=== PATIENT | female | born 1980 | race Caucasian/White ===

== ENCOUNTER → 2017-11-20 09:27 | Outpatient (CLI) | payer BC, SELFPAY ==
[2017-11-20 22:19] LABS: Chlamydia Trachomatis by PCR Negative (Negative); Neisserai gonorrhoeae by PCR Negative (Negative); Probe Check PASS; Sample Adequacy Control PASS; Specimen Processing Control PASS
== END ==
PROVIDERS: Visit Provider Obstetrics & Gynecology
DX: Z30.430 Encounter for insertion of intrauterine contraceptive device (principal); Z11.3 Encounter for screening for infections with a predominantly sexual mode of transmission
CPT/HCPCS: 87491; 87591

== ENCOUNTER 2019-05-26 05:25 | Day surgery (SDC) | payer SELFPAY ==
[2019-05-15 11:45] LABS: Hemoglobin 13.2 g/dL (12.0-15.0); Mean Corpuscular Hgb 30.8 pg (27.0-32.0); Mean Corpuscular Volume 93.5 fL (81-99); Mean Platelet Vol. 10.4 fl (6.2-12.0); Platelet Count 267 K/mm3 (150-450); RBC Distribution Width CV 12.8 % (11.6-14.6); RBC Distribution Width SD 43.8 fl (35.1-43.9); Red Blood Count 4.28 M/mm3 (4.2-5.4); White Blood Count 5.4 K/mm3 (4.4-11.0)
[2019-05-15 11:57] LABS: Prothrombin Time (Protime)PT. 13.2 SECONDS (11.7-14.9)
[2019-05-15 11:58] LABS: Partial Thromboplast Time 26.7 Seconds (24.1-36.2)
[2019-05-15 12:03] LABS: Internal QC Validated? YES +Cl - CLEAR BKGD; Pregnancy, Serum, hCG Quali. NEGATIVE Negative
[2019-05-15 12:06] LABS: Creatinine, Serum 0.69 mg/dL (0.55-1.02); EST Glomerular Filtration Rate 99 mL/min (>60); Est Glom Filt Rate - Afr Amer 120 mL/min (>60)
--- NOTE | 2019-05-25 19:47 | PCM.HP.BLA ---
History and Physical Date of Admission: 05/26/19 Surgical History and Physical Lorena Meade, a 39 year old female 0 0 0 1 3, presents for RAVH/BS on May 26, 2019 at 8:30. -- Ireegular Heavy Menses; Blood Loss Anemia; Submucous Fibroids; Enlarged Uterus -- Passing of a lot of clots. 39 y.o. G 1 P 3 previous smoker (quit 8 months ago) with LMP of 03-06-19 and continues through today. Seen PCP and recommended to see STUDENT DEVELOPMENT SPECIALIST as she may want to consider an Ablation, as she is anemic and placed on Iron supplement daily. History of Mirena IUD placement in 10/2017. Irregular Menses which began 2-3 months. Lorena claims it started suddenly and has been present 2-3 months. It occurs intermittantly. It is located in the vagina.; It is located in the lower abdomen. Lorena characterizes it to be non-radiating. Lorena characterizes the quality passing clots. Severity is moderate and not improving; Additional comments are: Has Mirena IUD and considering Ablation. U/S shows multiple uterine fibroids and one submucous. Uterus 13.5 cm size. MEDICATIONS HISTORY: Current medications prescribed by our practice are: 1. Mirena 20 mcg/24 hr (5 years) intrauterine device, Placed 11/20/17. Due for removal 11/20/22 ALLERGIES: No Known Allergies Infections - Chicken Pox Illnesses - None Accidents - None Hospitalizations - Surgery and Childbirth Review of Systems: GENERAL - Denies fever, or chills SKIN - Denies skin changes EYES - Denies visual changes EARS - Denies difficulty hearing NOSE - Denies nasal congestion or bleeding MOUTH - Denies sore throat or difficulty swallowing NECK - Denies pain or swelling RESPIRATORY - Denies shortness of breath or wheezing CARDIOVASCULAR - Denies palpitations or chest pain GASTROINTESTINAL - Denies nausea, vomiting, diarrhea, constipation GENITOURINARY - Denies dysuria, frequency of urination, incontinence of urine MUSCULOSKELETAL - Denies joint or muscle pain NEUROLOGICAL - Denies localized numbness or weakness PSYCHIATRIC - Denies depression or anxiety ENDOCRINE - Denies heat or cold intolerance, weight loss or gain HEMATO-IMMUNOLOGIC - Denies excesive bleeding with cuts SOCIAL HISTORY: Alcohol Use - drinks occasionally Smoking - used to smoke but quit Diet - Low Carb Lifestyle - moderate stress lifestyle and Exercise - regular Seat Belt Use - always Employer - [employer] in [place] Job Description - [employer] Illicit Drug Use - denies use of street drugs Sexual Activity - Residence - Lives w/ Spouse-Sig Other Name - Aj Meade Spouse-Sig Other Occupation - Garage Door Tech @ [employer] in [place] Spouse-Sig Other Phone No - [phone] Children Name(s) - 3 living (Triplets) 2 girls and a boy -- age 19 10/2017 Control - [facility] FAMILY HISTORY: MENSTRUAL HISTORY: LMP Known?- DefiniteAmount/Duration - 4-5 DAYS, Regularity - Irregular, Frequency - variable days, LMP - 04/29/19, Age Onset Menarche - 9 PAST PREGNANCIES: Total Pregnancies - 1; Full Term Pregnancies - 0; Premature - 0; Abortions, Induced - 0; Abortions, Spontaneous - 0; Ectopics - 0; Multiple Births - 1; Living Children - 3 SURGICAL HISTORY: 1. C/S 1998 ; Triplets PHYSICAL EXAM BP- 142/88 Sitting, Right arm, regular cuff Weight- 141.91456 lbs Height- 65.75 inch BMI:22.98 CONSTITUTIONAL - NAD, well nourished, and well developed SKIN - No rash, lesions, or ulcers HEENT - Normocephalic, PERRLA, EOMI LYMPH NODES - Palpation of lymph nodes in neck and groins within normal limits LUNGS - CTA x2 without wheezes, crackles or rales CARDIAC - Regular rate and rhythm without rubs, murmurs, or gallops ABDOMEN - Without hepatosplenomegaly, distention, masses, rebound, or guarding; normal bowel sounds; no hernias EXTREMITIES - No edema or calf tenderness NEUROLOGICAL - Cranial nerves II-XII grossly intact PSYCHIATRIC - A and O to time, place, person, mood and affect DETAILED PELVIC EXAM External Genital Vagina - non-tender without lesions Urethra/Urethral Meatus - non-tender Bladder - non-tender Vagina - vaginal larios are pink and moist without loss of rugae and no evidence of atropy Cervix - without cervical motion tenderness and has normal size and features without evident lesions Uterus - 5-6 cm in size, mobile and nontender Adnexa - clear without masses or tenderness ASSESSMENT/PLAN: 1. Blood Loss Anemia and Submucous Leiomyoma Of Uterus U/S shows multiple fibroids (one likely submucous) and 13.5 cm sized. Prior . Discussed options including expectant management, continuing iron, removing IUD and expectant management, versus proceeding with RAVH/BS. Desires the surgery. Discussed RBAs of surgery and all questions answered.
[2019-05-26] VITALS (14 sets, daily range): BP systolic 108–138; BP diastolic 59–93; PULSE 57–98; RESP 12–16; TEMP 36.6–37.6; O2SAT 94–100; BMI 22.5
--- NOTE | 2019-05-26 | HYST_PTH ---
PATIENT: ROSI BRIGGS [place] [facility] [place][id number] AGE/SX: 39/F ROOM: RE05/26/[address]: Dr. Travis Hernandez MD : 1980 BED: DIS: 05/27/2019 SPEC #: [id number] RECD: 05/26/19 13:36 STATUS: LOUANN SONG #: [id number] LUZ ELENA: 05/26/19 00:[address]: Travis Hernandez DEPT: SURGICAL PATHOLOGY RECD BY: Raghu Eli ENTERED: 05/26/19 13:36 SP TYPE: HYSTERECT OTHR DR: Dr. Abraham Velazquez MD Tissues: Uterus, NOS Procedures: Surgery Specimen Level V HEADER OPERATION: Robotic-assisted vaginal hysterectomy, bilateral salpingectomy PRE-OP DIAGNOSIS: Menorrhagia, submucous fibroids, enlarged uterus TISSUE SUBMITTED: Uterus, cervix, bilateral fallopian tubes MICROSCOPIC DIAGNOSIS Uterus, hysterectomy: Cervix - nabothian cysts and mild chronic inflammation. Endometrium - secretory endometrium. Myometrium - leiomyomas and cellular leiomyoma with degenerative change. Right and left fallopian tubes - benign paratubal cysts. AM:ap 05/27/19 COMMENT Case has been reviewed in consultation with Dr. Ware who concurs with the above diagnosis. IDC:SJ MICROSCOPIC DESCRIPTION Slides are reviewed. GROSS DESCRIPTION Received in fixative is one container labeled with the patient's name and designated uterus, cervix and bilateral fallopian tubes. The specimen consists of a hysterectomy specimen consisting of a uterus in multiple pieces, detached cervix and bilateral fallopian tubes. One fallopian tube attached to the largest piece, second tube is attached to one of the smaller pieces. The uterus with cervix weighs in aggregate 964 gm. The detached cervix measures 4 x 3 x 2.5 cm. The ectocervical mucosa is unremarkable. The external os is circular in contour. The endocervical canal measures 3.5 cm in length and the endocervical mucosa is unremarkable. The uterus in multiple pieces measures in aggregate 21 x 20 x 7 cm. The largest piece of uterus measures 11 x 9 x 6 cm. The endometrial cavity could not be identified due to the fragmented nature of the specimen. Sections of the uterus pieces reveal multiple nodules. The largest nodule measures 8 cm in greatest dimension. A focal area shows the serosal surface is valenzuela, glistening. Sections of these masses reveal valenzuela whorled cut surfaces without areas of hemorrhage, necrosis or cystic degeneration. The uninvolved uterine wall measures up to 4 cm in thickness. One of the fallopian tubes measure 6 cm in length and 0.5 cm in diameter. The fimbrial end is identified. Two paratubal cysts are noted measuring 0.8 and 1 cm in greatest dimension. Sections reveal unremarkable cut surfaces. The second fallopian tube is similar in appearance to the first one and measures 10 cm in length and 0.5 cm in diameter. The fimbrial end is identified. Sections reveal unremarkable cut surfaces. Manager Ship sections are submitted in 12 cassettes as follows: 1 & 2 - cervix, 3-6 - uterine wall, 7-10 - nodular masses (7 - largest nodular mass, 8 - second largest nodular mass, 9 & 10 - smaller nodular masses), 11 - one fallopian tube with paratubal cysts, 12 - second fallopian tube. / DAVID:ap 05/26/19 TC:1 CPT: 73187
[2019-05-26 05:56] LABS: Internal QC Validated? YES +Cl - CLEAR BKGD; Pregnancy, Urine Negative Negative
[2019-05-26] MEDS: Lactated Ringers 1,000 ML 100 ML IV ×2 (06:27→06:31)
--- NOTE | 2019-05-26 07:37 | PCM.OPRPT ---
Report of Operation Date of Procedure: 05/26/19 Pre-Operative Diagnosis: Menorrhagia, Submucous Fibroids, Enlarged Uterus Post-Operative Diagnosis: Menorrhagia, Submucous Fibroids, Enlarged Uterus Surgery/Procedure Performed:: Robotic Assisted Vaginal Hysterectomy and Bilateral Salpingectomy Description of Surgical Findings:: 14 cm fibroid uterus with normal-appearing fallopian tubes and ovaries. yard cleaner: Garrett Diamond Type of Anesthesia:: General - Endotracheal Anesthesiologist: Allen Hightower Specimen's removed: Uterus and bilateral fallopian tubes Drains: Lopes to straight drain Estimated Blood Loss (mL): 100 cc Fluids Replaced: Crystalloid Description of Procedure: Surgeon: Travis Hernandez MD, FACOG Indication: This is a 39 year old patient who has been having problems with extremely heavy periods and submucous uterine fibroids. Multiple conservative measures have not been helpful. The patient has been counseled regarding the risks, benefits and alternatives of this procedure including the possibility of bleeding, infection, and injury to surrounding structures such as bowel bladder and all questions were answered. She understands that if BSO is needed that she will need to be on HRT for an indefinite period of time. Procedure: Pt taken to the operating room where, after induction of general anesthesia, the patient was prepped and draped in the usual sterile fashion and placed on a non-slip Huggy-u-vac device. Trendelenburg test was satisfactory. Bladder was drained of urine with a Lopes catheter which was left in place. Anterior cervix grasped and cervix was dilated to about 3-4 mm. Uterus sounded to 13 cms. 0-Vicryl suture was placed at the 3:00 and 9:00 position of the cervix. A small Advincula [employer] Well Service Operator Uterine Manipulator was then placed in the uterus and attention was turned to the laparoscopic portion of the procedure. Ropivocaine 0.5% was injected approximately 2-3 cm superior to the umbilicus and an 8 mm robotic camera port was introduced directly with intraperitoneal placement confirmed with CO2 insufflation. 8 mm robotic side ports were introduced under direct visualization approximately 10 cm lateral and 2 cm inferior to the umbilical port. A 5 mm left upper quadrant port was introduced and airseal insufflation with CO2 was started. The above findings were noted. Robot was docked without difficulty and attention turned to the robotic portion of the procedure. Approximately 24cc of Ropivicaine was used. Bilateral infundibulopelvic ligaments/mesosalpinx were ligated with 35 lara bipolar coagulation to the level of the round ligament. We were unable to open the posterior aspect of the cervix due to the large size of the uterus. Bladder flap was opened and divided to the level of the round ligaments using monopolar cautery. Progressive bites were then ligated on each side of the cervix with 35 lara bipolar cautery to the uterine arteries. The anterior vaginal mucosa was entered and cervix circumscribed with monopolar cautery. Uterus and attached tubes were removed through the vagina and pieces by taking the uterus out in pieces. It was necessary to undock the robot during this portion of the procedure and then it was re-docked. Vaginal cuff was closed robotically first with 0-Vicryl Emil stitches placed at each angle followed by closure of the mid-cuff with 0-Monocryl V-lock suture in two layers. Pelvis was copiously irrigated with saline and the right ureter was noted to peristalse. Surgicel powder was placed across the vaginal cuff to help with postoperative hemostasis. Robot was undocked and trocars were removed with as much gas as possible. Incisions were closed with 4-0 Monocryl subcuticular sutures and incisions covered with steri-strips. The patient tolerated the procedure well and was taken to the recovery room in satisfactory condition. Sponge, instruments and needle counts were all correct. There were no apparent complications of the surgery. Cefotan 2 gms IV was given prior to the procedure. Grafts/Implants Used: None - Complications None - Admit VTE Documentation VTE Present on Admission: Yes VTE Mechan Device Prophylaxis: SCD's VTE Pharm Prophylaxis ordered?: Yes
--- NOTE | 2019-05-26 07:40 | DCINST_ITS ---
Discharge Diet: No Restrictions Discharge Activity: Return to Normal Activity, May Not Drive - while taking narcotic pain medications., May Shower, May Take a Tub Bath May resume sexual activity in: 6-8 weeks Call your doctor if your incision/area has: Continuous Slow Oozing, Sudden Inc reased Bleeding, Increased Pain/ Swelling, Increased Redness, Foul Smelling Discharge Call your doctor if you observe: Fever of 101 or Higher, Inability to urinate, Inability to have a bowel movement, Using more than one pad per hour Allergies/Adverse Reactions: Allergies No Known Allergies Allergy (Verified 05/21/19 08:09) Medications to take at Discharge Iron Carbonyl [Feosol] 65 mg PO BID 05/21/19 Docusate Sodium [Colace] 100 mg PO BID PRN PRN #60 cap 05/26/19 Oxycodone [Oxyir] 5 mg PO Q6H PRN PRN 7 Days #20 tab 05/26/19 The following prescriptions were given: Docusate Sodium [Colace] 100 mg PO BID PRN PRN #60 cap PRN Reason: Constipation Prescription Printed Oxycodone [Oxyir] 5 mg PO Q6H PRN PRN 7 Days #20 tab PRN Reason: Pain Score 4-10/10 Prescription Printed Primary Care Physician: Abraham Velazquez MD [Primary Care Provider] - Test Results: Test results from this visit will be discussed in further detail at your follow- up appointment, if applicable. Please Follow Up With: Travis Hernandez MD When: 2 to 3 weeks
[2019-05-26] MEDS: Ropivacaine 0.5% 30 ML Vial (08:30)
[2019-05-26] MEDS: Dextrose 5%-Lactated Ringers 1,000 ML 150 ML IV ×2 (14:40→21:59)
[2019-05-26] MEDS: Ferrous Sulfate 325 MG Tablet PO (17:15)
[2019-05-26] MEDS: Ketorolac 30 MG/ML Syringe IV (17:15)
[2019-05-26] MEDS: Enoxaparin 30 MG/0.3 ML Syringe SC (17:16)
[2019-05-26] MEDS: oxyCODONE 5 MG Tablet PO (20:27)
[2019-05-27] MEDS: Ketorolac 30 MG/ML Syringe IV ×2 (00:08→06:11)
[2019-05-27] MEDS: 0.9% NaCl Peripheral Flush Adult/Peds IV ×2 (00:08→06:11)
[2019-05-27 00:15] VITALS: BP 118/73; PULSE 86; RESP 16; TEMP 36.8; O2SAT 97
[2019-05-27 05:44] LABS: Hematocrit 29.9 % (37-47); Hemoglobin 9.8 g/dL (12.0-15.0); Mean Corp Hgb Conc 32.8 g/dL (32-36); Mean Corpuscular Volume 94.6 fL (81-99); Mean Platelet Vol. 10.4 fl (6.2-12.0); Platelet Count 219 K/mm3 (150-450); RBC Distribution Width CV 12.9 % (11.6-14.6); RBC Distribution Width SD 44.7 fl (35.1-43.9); Red Blood Count 3.16 M/mm3 (4.2-5.4); White Blood Count 8.5 K/mm3 (4.4-11.0)
[2019-05-27 05:47] LABS: Creatinine, Serum 0.67 mg/dL (0.55-1.02); EST Glomerular Filtration Rate 103 mL/min (>60); Est Glom Filt Rate - Afr Amer 124 mL/min (>60); Estimated Creatinine Clearance 107.46 ml/min
[2019-05-27 06:15] VITALS: BP 126/60; PULSE 72; RESP 16; TEMP 36.8; O2SAT 97
--- NOTE | 2019-05-27 06:37 | PCM.PN.OB ---
Subjective: Patient without complaints. Tolerating diet well. Minimal vaginal bleeding. Lopes catheter is out. - Physical Exam Vital Signs Temp Pulse Resp BP Pulse Ox 98.3 F 72 16 126/60 H 97 05/27/19 06:15 05/27/19 06:15 05/27/19 06:15 05/27/19 06:15 05/27/19 06:15 Oxygen Delivery Method Room Air Weight: 143 lb 11.862 oz Body Mass Index (BMI) 22.5 Intake and Output for Last 24 Hours 05/25/19 05/26/19 05/27/19 23:59 23:59 23:59 Intake Total 3241.67 / 3841.67 1400 / 1400 Output Total 475 / 475 1100 / 1100 Balance 2766.67 / 3366.67 300 / 300 Laboratory Tests Past 24 Hrs 05/27/19 05/27/19 05:10 05:10 WBC 8.5 RBC 3.16 L Hgb 9.8 L Hct 29.9 L MCV 94.6 MCH 31.0 MCHC 32.8 RDW Std Deviation 44.7 H RDW Coeff of Rosamaria 12.9 Plt Count 219 MPV 10.4 Creatinine 0.67 Estim Creat Clear Calc 107.46 Est GFR (MDRD) Af Amer 124 Est GFR (MDRD) Non-Af 103 Wounds are clean, dry, intact. Good urine output. Hemoglobin and creatinine okay. Medical Necessity - Tobacco Use Smoking Status: Former smoker Assessment/Plan Doing well postoperative day #1 status post robotic assisted vaginal hysterectomy and bilateral salpingectomy. Will release to home with routine instructions.
[2019-05-27 07:38] VITALS: O2SAT 96
[2019-05-27 08:19] VITALS: BP 121/74; PULSE 65; RESP 16; TEMP 37.2; O2SAT 99
--- NOTE | 2019-05-27 09:40 | CASEMGMT ---
Social Work Note Pt is listed as self-pay. Per PFS pt has [facility]. Nay Pascual COMPRESSOR STATION OPERATOR, UTILIZATION SPECIALIST
[2019-05-27] MEDS: oxyCODONE 5 MG Tablet PO (10:11)
[2019-05-27] MEDS: Ferrous Sulfate 325 MG Tablet PO (10:12)
== END 2019-05-27 10:41 | disposition home or self-care (01) ==
LOC: SDC 05:25 → AC 05:26 → MS3 07:50
PROVIDERS: Anesthesiology; Family Provider Family Medicine; PCP Family Medicine; Referring Provider Obstetrics & Gynecology; Visit Provider Obstetrics & Gynecology
PROC: 0UT90ZZ Resection of Uterus, Open Approach (ICD-10-PCS; CPT 58554; principal; 2019-05-26 07:10)
DX: N92.0 Excessive and frequent menstruation with regular cycle (principal); D25.0 Submucous leiomyoma of uterus; N85.2 Hypertrophy of uterus; N83.8 Other noninflammatory disorders of ovary, fallopian tube and broad ligament; Z87.891 Personal history of nicotine dependence
CPT/HCPCS: 00840; 58554; S2900; 36415; 81025; 82565; 84703; 85027; 85610; 85730; 86850; 86900; 86901; 88307; 99406; J7120; A4216; J2405